=== PATIENT | female | born 2000 ===

== ENCOUNTER 2020-08-15 10:48 | Outpatient (CLI) | payer OTHER | END 2020-08-15 23:59 | disposition home or self-care (01) | LOC: LAB 10:48 | PROVIDERS: ATTEND Specialist | DX: Z01.812 Encounter for preprocedural laboratory examination (principal); Z20.828 Contact with and (suspected) exposure to other viral communicable diseases | CPT/HCPCS: 87426; C9803 ×2; U0003 ==

== ENCOUNTER 2020-08-21 07:25 | Day surgery (SDC) | payer OTHER ==
[2020-08-21] MEDS ORDERED: GABAPENTIN 300 MG CAPSULE ONE (08:23)
[2020-08-21] MEDS ORDERED: oxyCODONE HCL SR 20MG TAB.SR.12H PO ONE (08:26)
[2020-08-21] MEDS ORDERED: KETOROLAC TROMETHAMINE INJ 30 MG/ML VIAL ONE (08:26)
[2020-08-21] MEDS ORDERED: CELECOXIB 100 MG CAPSULE ONE (08:27)
[2020-08-21] MEDS ORDERED: ACETAMINOPHEN 325 MG TABLET ONE (08:31)
[2020-08-21] MEDS ORDERED: ANESTHESIA TRAY IN PYXIS 1 EA TRAY MC ONE (09:26)
[2020-08-21] MEDS ORDERED: LIDOCAINE MPF 1%-EPI 1:200,000 30 ML VIAL IJ ONE (09:27)
[2020-08-21] MEDS ORDERED: METHYLENE BLUE 10 ML VIAL ONE (09:27)
[2020-08-21] MEDS ORDERED: BUPIVACAINE 0.5 % PF 150 MG/30 ML VIAL ONE (09:27)
[2020-08-21] MEDS ORDERED: methylPREDNISolone ACETATE 80 MG/ML VIAL ONE (09:28)
[2020-08-21] MEDS ORDERED: CEFAZOLIN 1 GM ONE (09:28)
[2020-08-21] MEDS ORDERED: HEMOSTATIC MATRIX 8 ML 1 EACH PAD MC ONE (09:28)
[2020-08-21] MEDS ORDERED: PROPOFOL 100 ML ONE (09:32)
[2020-08-21] MEDS ORDERED: FENTANYL PF 100MCG/2ML AMPUL ONE (09:33)
[2020-08-21] MEDS ORDERED: SEVOFLURANE 250 ML BOTTLE IH ONE (09:34)
[2020-08-21] MEDS ORDERED: SCOPOLAMINE PATCH 1 MG/72HR TD ONE (09:34)
== END 2020-08-21 14:05 | disposition home or self-care (01) ==
LOC: DS 07:25
PROVIDERS: ATTEND Specialist
DX: M51.26 Other intervertebral disc displacement, lumbar region (principal); M54.16 Radiculopathy, lumbar region
CPT/HCPCS: 36415; 62323; 63030; 72020; 84703; 85240; 86850; A6209; A6402; J0690 ×2; J1040; J1100 ×2; J1885; J2001; J2405; J2704; J3490 ×5; Q9968; J3010